=== PATIENT | female | born 1965 ===

== ENCOUNTER 2017-06-22 17:42 | Observation (INO) | payer OTHER ==
[2017-06-22 17:42] VITALS: BMI 40.8
--- NOTE | 2017-06-22 18:55 | ED PDOC ---
HPI: Back Time Seen by Provider: 06/22/17 17:55 Chief Complaint (Nursing): Back Pain Chief Complaint (Provider): Upper left back pain, sOB, chest pain History Per: Patient History/Exam Limitations: no limitations Onset/Duration Of Symptoms: Days Current Symptoms Are (Timing): Still Present Quality Of Discomfort: Sharp, Stabbing Severity: Moderate Pain Scale Rating Of: 6 Previous Symptoms: None Associated Symptoms: None Additional Complaint(s): Pt reports upper left back pain for 1 month. Pt states she was admitted at [facility] 5 days ago for pneumonia. Pt states the pain did not change. Pt states today she developed SOB and chest pain. Pt reports fever 101.0 at home. Pt states she had a PE on the right in 2015 and was told she had a PE on the left at recent visit to [facility]. Pt states she was started on eliquis. Past Medical History Reviewed: Historical Data, Nursing Documentation, Vital Signs Vital Signs: Last Vital Signs Temp 98.5 F 06/22/17 17:50 Pulse 91 H 06/22/17 17:50 Resp 16 06/22/17 17:50 BP 148/88 06/22/17 17:50 Pulse Ox 96 06/22/17 17:50 - Medical History PMH: HTN (not on meds) Denies: Chronic Kidney Disease - Surgical History Surgical History: No Surg Hx - Family History Family History: States: Unknown Family Hx - Living Arrangements Living Arrangements: With Family - Social History Current smoker - smoking cessation education provided: No Alcohol: None - Immunization History Hx Tetanus Toxoid Vaccination: No Hx Influenza Vaccination: No Hx Pneumococcal Vaccination: No - Home Medications Home Medications: Ambulatory Orders Medication Instructions Recorded Apixaban [Eliquis] 5 mg PO BID #60 tablet 06/19/17 Cefpodoxime [Vantin] 200 mg PO BID 10 Days tab 06/19/17 Ketorolac Tromethamine [Toradol] 10 mg PO Q6H PRN 5 Days tab 06/19/17 - Allergies Allergies/Adverse Reactions: Allergies Allergy/AdvReac Type Severity Reaction Status Date / Time No Known Allergies Allergy Verified 06/17/17 11:37 Review of Systems ROS Statement: Except As Marked, All Systems Reviewed And Found Negative Constitutional: Positive for: Fever (101.0) Physical Exam - Reviewed Nursing Documentation Reviewed: Yes Vital Signs Reviewed: Yes - Physical Exam Appears: Positive for: Well, Non-toxic, No Acute Distress Head Exam: Positive for: ATRAUMATIC, NORMAL INSPECTION, NORMOCEPHALIC Skin: Positive for: Normal Color, Warm, DRY Eye Exam: Positive for: EOMI, Normal appearance, PERRL ENT: Positive for: Normal ENT Inspection Neck: Positive for: Normal, Painless ROM Cardiovascular/Chest: Positive for: Regular Rate, Rhythm Respiratory: Positive for: CNT, Normal Breath Sounds Gastrointestinal/Abdominal: Positive for: Normal Exam, Soft Back: Positive for: Normal Inspection Extremity: Positive for: Normal ROM Neurologic/Psych: Positive for: Alert, Oriented - Laboratory Results Result Diagrams: 06/22/17 19:40 06/22/17 19:40 - ECG O2 Sat by Pulse Oximetry: 96 Medical Decision Making Medical Decision Makin - Pt would like something for back pain Discussed admission for new chest pain with Dr. Carias. Disposition - Clinical Impression Clinical Impression: Chest pain - Patient ED Disposition Is Patient to be Admitted: Yes - Disposition Referrals: Provider TBD, [Non-Staff] - Disposition Time: 22:02 Condition: STABLE Forms: [email or web address] (Yakut) - Pt Status Changed To: Hospital Disposition Of: Observation - Admit Certification Admit to Inpatient:: Telemetry - POA Present On Arrival: None
[2017-06-22 19:52] LABS: VENOUS BLOOD GAS BASE EXCESS 5.5 mmol/L (0.0-2.0); VENOUS BLOOD GAS PCO2 56 mmHg (40-60); VENOUS BLOOD GAS PO2 23 mm/Hg (30-55); VENOUS BLOOD PH 7.37 (7.32-7.43)
[2017-06-22 19:55] LABS: BASO # 0.1 K/uL (0.0-0.2); BASO % 0.9 % (0.0-2.0); EOS # 0.3 K/uL (0.0-0.7); EOS % 2.8 % (0.0-4.0); HEMOGLOBIN 12.3 g/dL (12.0-16.0); LYMPH # 2.2 K/uL (1.0-4.3); LYMPH % 20.9 % (20.0-40.0); MEAN CELL VOLUME 90.6 fl (81.0-99.0); MEAN CORPUSCULAR HEMOGLOBIN 30.6 pg (27.0-31.0); MEAN CORPUSCULAR HGB CONC 33.8 g/dL (33.0-37.0); MEAN PLATELET VOLUME 7.1 fl (7.2-11.7); MONO # 0.8 K/uL (0.0-0.8); MONO % 7.6 % (0.0-10.0); NEUT # 7.3 K/uL (1.8-7.0); NEUT % 67.8 % (50.0-75.0); NRBC % 0.1 % (0.0-0.0); RBC 4.03 Mil/uL (3.80-5.20); RED CELL DISTRIBUTION WIDTH 13.8 % (11.5-14.5); WHITE BLOOD COUNT 10.7 K/uL (4.8-10.8)
[2017-06-22 20:03] LABS: ALBUMIN 3.9 g/dL (3.5-5.0); ALT/SGPT 104 U/L (9-52); AST/SGOT 52 U/L (14-36); BLOOD UREA NITROGEN 14 mg/dl (7-17); CALCIUM 9.5 mg/dL (8.4-10.2); GFR AFRICAN-AMERICAN > 60; GFR NON-AFRICAN AMERICAN > 60
[2017-06-22 20:17] LABS: B-TYPE NATRIURETIC PEPTIDE 86.1 pg/ml (0-900)
--- NOTE | 2017-06-23 00:02 | CP.PCM.HP ---
History of Present Illness - History of Present Illness History of Present Illness: PMD: None Chief complaint: lower back and chest pain The Patient was seen and examined in the ED HPI: 52 years old female with hx of PE dx 03/2014; fatty liver, HTN was last admitted at the [facility] on 06/17/17 and discharged on 06/19/17 treated for Pneumonia and PE. She was discharged with Eliquis. She now comes with left mid back pain radiating to the left anterior chest associated with SOB and on exertion . Her pain is not relieved with her analgesics. She referred that her pain increases with exertion. She does refer a Temperature of 101f at home PMH: HTN; Recurrent UTI; Fatty liver; PE dx in 2014 an again in 06/2017 PSH: Right Breast Bx SH: No illegal drug use; No Alcohol; No smoking; Live with family FH: : States: Unknown Family Hx Allergies: NKDA Medication: Reviewed Present on Admission - Present on Admission Any Indicators Present on Admission: No History of DVT/PE: No History of Uncontrolled Diabetes: No Urinary Catheter: No Decubitus Ulcer Present: No Review of Systems - Constitutional Constitutional: Fever. absent: Anorexia, Chills, Headache, Lethargy - EENT Eyes: absent: Diplopia, Floaters, Photophobia, Requires Corrective Lenses Ears: absent: Decreased Hearing, Ear Discharge, Ear Pain Nose/Mouth/Throat: absent: Epistaxis, Nasal Congestion, Nasal Discharge, Sinus Pain, Sinus Pressure - Cardiovascular Cardiovascular: Chest Pain. absent: Dyspnea, Edema - Respiratory Respiratory: Pain on Inspiration. absent: Cough, Dyspnea, Wheezing - Gastrointestinal Gastrointestinal: absent: Diarrhea, Nausea, Vomiting - Genitourinary Genitourinary: absent: Dysuria, Flank Pain, Hematuria, Urinary Frequency - Musculoskeletal Musculoskeletal: Back Pain. absent: Arthralgias, Myalgias - Integumentary Integumentary: absent: Pruritus, Rash, Skin Ulcer, Sores, Striae, Swelling - Neurological Neurological: absent: Confusion, Dizziness, Focal Weakness, Headaches - Psychiatric Psychiatric: absent: Anxiety, Depression, Panic Attacks - Endocrine Endocrine: absent: Palpitations, Polyphagia, Polyuria - Hematologic/Lymphatic Hematologic: absent: Easy Bleeding, Easy Bruising Past Patient History - Infectious Disease Hx of Infectious Diseases: None - Past Medical History & Family History Past Medical History?: Yes - Past Social History Chewing Tobacco Use: No Cigar Use: No Alcohol: None Drugs: Denies Home Situation {Lives}: With Family - CARDIAC Hx Cardiac Disorders: Yes Hx Hypertension: Yes - PULMONARY Hx Respiratory Disorders: Yes Hx Pneumonia: Yes - NEUROLOGICAL Hx Neurological Disorder: No - HEENT Hx HEENT Problems: No - RENAL Hx Chronic Kidney Disease: No - ENDOCRINE/METABOLIC Hx Endocrine Disorders: No - HEMATOLOGICAL/ONCOLOGICAL Hx Blood Disorders: No - INTEGUMENTARY Hx Dermatological Problems: No - MUSCULOSKELETAL/RHEUMATOLOGICAL Hx Falls: No - GASTROINTESTINAL Hx Gastrointestinal Disorders: Yes Hx Gastroesophageal Reflux: Yes - GENITOURINARY/GYNECOLOGICAL Hx Genitourinary Disorders: No - PSYCHIATRIC Hx Psychophysiologic Disorder: No Hx Substance Use: No - SURGICAL HISTORY Hx Surgeries: Yes Hx Breast Biopsy: Yes (right) - ANESTHESIA Hx Anesthesia: Yes Hx Anesthesia Reactions: No Meds Allergies/Adverse Reactions: Allergies Allergy/AdvReac Type Severity Reaction Status Date / Time No Known Allergies Allergy Verified 06/17/17 11:37 Physical Exam - Constitutional Appears: No Acute Distress - Head Exam Head Exam: ATRAUMATIC, NORMAL INSPECTION, NORMOCEPHALIC - Eye Exam Eye Exam: EOMI, Normal appearance Pupil Exam: NORMAL ACCOMODATION, PERRL - ENT Exam ENT Exam: Mucous Membranes Moist, Normal Exam - Neck Exam Neck exam: Positive for: Full Rom, Normal Inspection. Negative for: Lymphadenopathy, Tenderness - Respiratory Exam Respiratory Exam: Clear to Auscultation Bilateral. absent: Rales, Rhonchi, Wheezes - Cardiovascular Exam Cardiovascular Exam: REGULAR RHYTHM, RRR, +S1, +S2. absent: Gallop - GI/Abdominal Exam GI & Abdominal Exam: Normal Bowel Sounds, Soft. absent: Mass, Organomegaly, Tenderness - Rectal Exam Rectal Exam: Deferred - Extremities Exam Extremities exam: Positive for: normal inspection. Negative for: calf tenderness, tenderness - Back Exam Back exam: CVA tenderness (L), NORMAL INSPECTION - Neurological Exam Neurological exam: Alert, CN II-XII Intact, Oriented x3, Reflexes Normal - Psychiatric Exam Psychiatric exam: Normal Affect, Normal Mood - Skin Skin Exam: Dry, Intact, Normal Color, Warm Results - Vital Signs Recent Vital Signs: Last Vital Signs Temp 98.5 F 06/22/17 23:29 Pulse 91 H 06/22/17 23:29 Resp 16 06/22/17 23:29 BP 148/88 06/22/17 23:29 Pulse Ox 96 06/22/17 22:33 - Labs Result Diagrams: 06/22/17 19:40 06/22/17 19:40 Labs: Laboratory Results - last 24 hr 06/22/17 06/22/17 06/22/17 19:40 19:40 19:40 WBC 10.7 RBC 4.03 Hgb 12.3 Hct 36.5 MCV 90.6 MCH 30.6 MCHC 33.8 RDW 13.8 Plt Count 283 MPV 7.1 L Neut % (Auto) 67.8 Lymph % (Auto) 20.9 [place] % (Auto) 7.6 Eos % (Auto) 2.8 Baso % (Auto) 0.9 Neut # (Auto) 7.3 H Lymph # (Auto) 2.2 [place] # (Auto) 0.8 Eos # (Auto) 0.3 Baso # (Auto) 0.1 pO2 VBG pH VBG pCO2 VBG HCO3 VBG Total CO2 VBG O2 Sat (Calc) VBG Base Excess VBG Potassium Sodium 145 Chloride 101 Glucose Lactate FiO2 Potassium 4.6 Carbon Dioxide 28 Anion Gap 21 H BUN 14 Creatinine 0.7 Est GFR ( Amer) > 60 Est GFR (Non-Af Amer) > 60 Random Glucose 100 Calcium 9.5 Total Bilirubin 0.5 AST 52 H D ALT 104 H Alkaline Phosphatase 337 H D Troponin I < 0.0120 NT-Pro-B Natriuret Pep 86.1 Total Protein 7.8 Albumin 3.9 Globulin 3.9 Albumin/Globulin Ratio 1.0 Venous Blood Potassium Influenza Typ A,B (EIA) Negative for flu a/b 06/22/17 19:40 WBC RBC Hgb Hct MCV MCH MCHC RDW Plt Count MPV Neut % (Auto) Lymph % (Auto) [place] % (Auto) Eos % (Auto) Baso % (Auto) Neut # (Auto) Lymph # (Auto) [place] # (Auto) Eos # (Auto) Baso # (Auto) pO2 23 L VBG pH 7.37 VBG pCO2 56 VBG HCO3 27.6 VBG Total CO2 34.1 H VBG O2 Sat (Calc) 43.9 VBG Base Excess 5.5 H VBG Potassium 4.4 Sodium 138.0 Chloride 105.0 Glucose 102 Lactate 1.3 FiO2 21.0 Potassium Carbon Dioxide Anion Gap BUN Creatinine Est GFR ( Amer) Est GFR (Non-Af Amer) Random Glucose Calcium Total Bilirubin AST ALT Alkaline Phosphatase Troponin I NT-Pro-B Natriuret Pep Total Protein Albumin Globulin Albumin/Globulin Ratio Venous Blood Potassium 4.4 Influenza Typ A,B (EIA) - EKG Data EKG comments: NSR 72/min - Imaging and Cardiology Chest x-ray Status: Image reviewed by me Additional comment: NSR 72 Assessment & Plan - Assessment and Plan (Free Text) Assessment: #.Chest pain #. Back pain #. Hx of PE Plan: 52 years old female with hx of PE dx 03/2014; fatty liver, HTN was last admitted at the [facility] on 06/17/17 and discharged on 06/19/17 treated for Pneumonia and PE. She was discharged with Eliquis. She now comes with left mid back pain radiating to the left anterior chest associated with SOB and on exertion . Her pain is not relieved with her analgesics. She referred that her pain increases with exertion. She does refer a Temperature of 101f at home #.Chest pain and left back pain, muscul-skeletal most likely. r/o ACS. Chest X Ray shows no infiltrate and the patient is being treated for lnew eft lung Pulmonary Embolism . - Serial Troponin - Serial EKG - Uptomise Pain management - X Ray of Thoracic spine and Ribs - Discharge on Analgesic if negative #. Hx of PE - continue with Eliquis #. DVT prophylaxis> the patient is on Eliquis #, Code Status: Full - Date & Time Date: 06/23/17 Time: 00:02
[2017-06-23] MEDS: CEFPODOXIME 200 MG PO SCH ×2 (01:40→08:46)
--- NOTE | 2017-06-23 07:58 | RAD ---
HISTORY: pneumonia COMPARISON: No prior. TECHNIQUE: Chest PA and lateral FINDINGS: LUNGS: Inspiratory volume appears somewhat limited. There is some crowding of the bronchovascular markings in the frontal view but no definite infiltrate bilaterally. PLEURA: No significant pleural effusion identified. No pneumothorax apparent. CARDIOVASCULAR: Normal. OSSEOUS STRUCTURES: No significant abnormalities. VISUALIZED UPPER ABDOMEN: Normal. OTHER FINDINGS: None. IMPRESSION: No acute infiltrate or pleural effusion bilaterally. No active cardiovascular disease appreciable at this time. Limited inspiratory effort.
[2017-06-23] MEDS ORDERED: Lidocaine 5% Patch TD SCH (09:00)
--- NOTE | 2017-06-23 11:18 | CARD ---
APPROVED REPORT EKG Measurement Heart [id number] <Conclusion> Normal sinus rhythm Minimal voltage criteria for LVH, may be normal variant Borderline ECG
--- NOTE | 2017-06-23 11:21 | CARD ---
APPROVED REPORT EKG Measurement Heart [id number] <Conclusion> Normal sinus rhythm Moderate voltage criteria for LVH, may be normal variant Borderline ECG
--- NOTE | 2017-06-23 15:42 | RAD ---
HISTORY: pain upper back COMPARISON: No prior. FINDINGS: BONES: Alignment maintained. No fracture. DISC SPACES: Normal. SOFT TISSUES: Normal. OTHER FINDINGS: None. IMPRESSION: Normal radiographs of the thoracic spine.
[2017-06-23 15:47] VITALS: BP 140/87; PULSE 81; RESP 20; TEMP 98.4; O2SAT 96
--- NOTE | 2017-06-23 16:01 | CP.PCM.DIS ---
Provider - Provider Date of Admission: 06/22/17 22:05 Attending physician: Gil Carias Primary care physician: [facility] Time Spent in preparation of Discharge (in minutes): 15 Hospital Course - Lab Results Lab Results: Most Recent Lab Values WBC 10.7 K/uL (4.8-10.8) 06/22/17 19:40 RBC 4.03 Mil/uL (3.80-5.20) 06/22/17 19:40 Hgb 12.3 g/dL (12.0-16.0) 06/22/17 19:40 Hct 36.5 % (34.0-47.0) 06/22/17 19:40 MCV 90.6 fl (81.0-99.0) 06/22/17 19:40 MCH 30.6 pg (27.0-31.0) 06/22/17 19:40 MCHC 33.8 g/dL (33.0-37.0) 06/22/17 19:40 RDW 13.8 % (11.5-14.5) 06/22/17 19:40 Plt Count 283 K/uL (130-400) 06/22/17 19:40 MPV 7.1 fl (7.2-11.7) L 06/22/17 19:40 Neut % (Auto) 67.8 % (50.0-75.0) 06/22/17 19:40 Lymph % (Auto) 20.9 % (20.0-40.0) 06/22/17 19:40 [place] % (Auto) 7.6 % (0.0-10.0) 06/22/17 19:40 Eos % (Auto) 2.8 % (0.0-4.0) 06/22/17 19:40 Baso % (Auto) 0.9 % (0.0-2.0) 06/22/17 19:40 Neut # (Auto) 7.3 K/uL (1.8-7.0) H 06/22/17 19:40 Lymph # (Auto) 2.2 K/uL (1.0-4.3) 06/22/17 19:40 [place] # (Auto) 0.8 K/uL (0.0-0.8) 06/22/17 19:40 Eos # (Auto) 0.3 K/uL (0.0-0.7) 06/22/17 19:40 Baso # (Auto) 0.1 K/uL (0.0-0.2) 06/22/17 19:40 pO2 23 mm/Hg (30-55) L 06/22/17 19:40 VBG pH 7.37 (7.32-7.43) 06/22/17 19:40 VBG pCO2 56 mmHg (40-60) 06/22/17 19:40 VBG HCO3 27.6 mmol/L 06/22/17 19:40 VBG Total CO2 34.1 mmol/L (22-28) H 06/22/17 19:40 VBG O2 Sat (Calc) 43.9 % (40-65) 06/22/17 19:40 VBG Base Excess 5.5 mmol/L (0.0-2.0) H 06/22/17 19:40 VBG Potassium 4.4 mmol/L (3.6-5.2) 06/22/17 19:40 Sodium 138.0 mmol/L (132-148) 06/22/17 19:40 Chloride 105.0 mmol/L (98-107) 06/22/17 19:40 Glucose 102 mg/dL (65-105) 06/22/17 19:40 Lactate 1.3 mmol/L (0.7-2.1) 06/22/17 19:40 FiO2 21.0 % 06/22/17 19:40 Sodium 145 mmol/l (132-148) 06/22/17 19:40 Potassium 4.6 MMOL/L (3.6-5.0) 06/22/17 19:40 Chloride 101 mmol/L (98-107) 06/22/17 19:40 Carbon Dioxide 28 mmol/L (22-30) 06/22/17 19:40 Anion Gap 21 (10-20) H 06/22/17 19:40 BUN 14 mg/dl (7-17) 06/22/17 19:40 Creatinine 0.7 mg/dl (0.7-1.2) 06/22/17 19:40 Est GFR ( Amer) > 60 06/22/17 19:40 Est GFR (Non-Af Amer) > 60 04/12/18 19:40 Random Glucose 100 mg/dL (65-105) 06/22/17 19:40 Calcium 9.5 mg/dL (8.4-10.2) 06/22/17 19:40 Total Bilirubin 0.5 mg/dl (0.2-1.3) 06/22/17 19:40 AST 52 U/L (14-36) H D 06/22/17 19:40 ALT 104 U/L (9-52) H 06/22/17 19:40 Alkaline Phosphatase 337 U/L (38-126) H D 06/22/17 19:40 Troponin I < 0.0120 ng/mL (0.00-0.120) 06/23/17 12:05 NT-Pro-B Natriuret Pep 86.1 pg/ml (0-900) 06/22/17 19:40 Total Protein 7.8 G/DL (6.3-8.2) 06/22/17 19:40 Albumin 3.9 g/dL (3.5-5.0) 06/22/17 19:40 Globulin 3.9 gm/dL (2.2-3.9) 06/22/17 19:40 Albumin/Globulin Ratio 1.0 (1.0-2.1) 06/22/17 19:40 Venous Blood Potassium 4.4 mmol/L (3.6-5.2) 06/22/17 19:40 Urine HCG, Qual Negative (NEGATIVE) 06/23/17 10:15 Influenza Typ A,B (EIA) Negative for flu a/b (NEGATIVE) 06/22/17 19:40 - Hospital Course Hospital Course: 52 years old female with hx of PE dx 03/2014; fatty liver, HTN was last admitted at the on 06/17/17 and discharged on 06/19/17 treated for suspected Pneumonia and PE. She was discharged with Elisolo. She now comes with left mid back pain radiating to the left anterior chest . Her pain is relieved with Toradol. She referred that her pain increases with exertion and has had this pain for a long time . She was told to follow up as outpatient with a specialist for muskuloskeletal pain but she did not . She was placed under observation in telelemetry and troponin x 3 were ordered . ACS was ruled out .Thoracic spine Xray and rib cage showed no abnormality. CXR showed no infiltrate or atelectasis. Patient is hemodynamically stable, afebrile in no acute distress ROM to Left shoulder in wnl Most likely pain to left mid back musculopskleletal in origin will discharge patient home Advice to follow up with [facility] or [facility] 1.Chest pain and left back danny- muscul-skeletal in origin r/o ACS ruled out . Chest X Ray shows no infiltrate and the patient is being treated for new PE. Continue Eliquis trop x 3 negative ib xray and thoracic spine showed no acute pathology will d/c on Toradol PO PRN 2. Hx of PE - continue with Eliquis 3. obesity BMI 43 4. fatty liver Most likely secondary to obesity counselled on diet and exercise s Discharge Exam - Head Exam Head Exam: ATRAUMATIC, NORMAL INSPECTION, NORMOCEPHALIC Additional comments: obese - Eye Exam Eye Exam: EOMI, Normal appearance, PERRL Pupil Exam: NORMAL ACCOMODATION - ENT Exam ENT Exam: Mucous Membranes Moist, Normal Exam - Neck Exam Neck exam: Full Rom, Normal Inspection - Respiratory Exam Respiratory Exam: Clear to PA & Lateral, NORMAL BREATHING PATTERN. absent: Rales, Rhonchi, Wheezes - Cardiovascular Exam Cardiovascular Exam: REGULAR RHYTHM, RRR, +S1, +S2. absent: JVD - GI/Abdominal Exam GI & Abdominal Exam: Normal Bowel Sounds, Soft. absent: Distended, Guarding, Rebound, Tenderness - Rectal Exam Rectal Exam: Deferred - Extremities Exam Extremities exam: normal capillary refill, normal inspection, pedal pulses present - Back Exam Back exam: NORMAL INSPECTION - Neurological Exam Neurological exam: Alert, CN II-XII Intact, Oriented x3, Reflexes Normal - Psychiatric Exam Psychiatric exam: Normal Affect, Normal Mood - Skin Skin Exam: Dry, Intact, Normal Color, Warm Discharge Plan - Follow Up Plan Condition: STABLE Disposition: HOME/ ROUTINE Patient education suggested?: Yes Instructions: Chest Pain That Is Not Caused by the Heart (DC) Additional Instructions: follow up with pmd in 1 week Referrals: Provider TBD, [Non-Staff] - [facility] [Outside]
--- NOTE | 2017-06-23 16:06 | RAD ---
PROCEDURE: Radiographs of the Chest and Left Ribs. HISTORY: pain COMPARISON: None available. TECHNIQUE: Frontal radiograph of the chest and multiple oblique radiographs of the left ribs were obtained. FINDINGS: LEFT RIBS: No fracture or focal lesion visualized. LUNGS: Clear. PLEURA: No pneumothorax or pleural fluid. CARDIOVASCULAR: Normal sized heart. No pulmonary vascular congestion. OTHER FINDINGS: None. IMPRESSION: Unremarkable radiographs of the chest and left ribs. No left rib fracture.
== END 2017-06-23 16:29 | disposition home or self-care (01) ==
LOC: SUPCPDRO 17:42 → H.ER 17:42 → H.ERHOLD 22:05 → H.TEL 23:57
PROVIDERS: ADMIT Internal Medicine; ATTEND Internal Medicine
DX: R07.89 Other chest pain (principal); I10 Essential (primary) hypertension; K21.9 Gastro-esophageal reflux disease without esophagitis; E66.9 Obesity, unspecified; Z68.41 Body mass index [BMI] 40.0-44.9, adult; K76.0 Fatty (change of) liver, not elsewhere classified; Z79.01 Long term (current) use of anticoagulants; Z86.711 Personal history of pulmonary embolism; Z87.01 Personal history of pneumonia (recurrent); Z87.440 Personal history of urinary (tract) infections
CPT/HCPCS: 36415; 71046; 71100; 72070; 80053; 82803; 83880; 84484; 84703; 85025; 87040; 87804; 93005; 99282; G0378; J1885; J2270